=== PATIENT | female | born 1980 | race Caucasian/White ===

== ENCOUNTER 2023-01-27 16:19 | Observation (INO) | payer BC, SELFPAY ==
[2023-01-27] VITALS (17 sets, daily range): BP systolic 86–127; BP diastolic 68–101; PULSE 89–175; RESP 9–23; TEMP 36.7–37.5; O2SAT 96–100; BMI 29.8; BMI 32.1
[2023-01-27] MEDS: dilTIAZem 5 mg/mL SDV 5 mL 20 MG IVP (16:40)
--- NOTE | 2023-01-27 16:43 | XRR_ITS ---
PROCEDURE INFORMATION: Exam: XR Chest Exam date and time: 01/27/2023 4:54 PM Age: 43 years old Clinical indication: Cough; Additional info: Dyspnea/cough TECHNIQUE: Imaging protocol: Radiologic exam of the chest. Views: 1 view. COMPARISON: No relevant prior studies available. FINDINGS: Lungs: The lung bases are suboptimally assessed due to technique however the upper lungs are clear of focal consolidation. Pleural spaces: Unremarkable. No pleural effusion. No pneumothorax. Heart/Mediastinum: Cardiac silhouette appears normal in size. No obvious vascular congestion. Bones/joints: No acute osseous findings. Other findings: Single view was submitted. XR/XR chest 1V portable [id number] IMPRESSION: No obvious acute consolidation. Suboptimal lung base assessment. Followup including lateral view may be obtained if clinically indicated.
[2023-01-27] MEDS: dilTIAZem 100 MG in sodium chloride 0.9% (add-van) 100 ML IV (16:47)
--- NOTE | 2023-01-27 16:51 | W.ED.ARRPALP ---
HPI - Arrhythmia/Palpitations General: Chief Complaint: Arrhythmia/Palpitations Stated Complaint: light headed, heart racing Time Seen by Provider: 01/27/23 16:26 Source: patient Mode of arrival: ambulatory History of Present Illness: 43-year-old female presents emergency room stating that around 2:00. She has had rapid heart rate in the past but never quite this rapid or sustained she has been a little lightheaded and dizzy. When she first arrived her heart rate is in the 150s to 70s irregularly irregular and her systolic pressures in the 80s. She denies any chest pain. MD complaint: rapid heart beat, heart racing and palpitations Onset (ago): hour(s) Duration: constant Severity: mild Context: occurred during rest Associated symptoms: Deny anxiety, cough, diaphoresis, muscle cramps, nausea, paresthesias, pre-syncope, sense of impending doom, short of breath, syncope or vomiting Review of Systems Const: Denies: diaphoresis ENMT: Denies: throat pain, ear or mastoid pain, nasal discharge or nasal congestion Card: Denies: syncope or pre-syncope Resp: Denies: dyspnea, productive cough or non-productive cough GI: Denies: nausea or vomiting : Denies: flank pain, difficulty voiding, dysuria, urinary frequency or urinary urgency Musc: Denies: muscle cramps Skin/Breast: Denies: rash or pruritus Psych: Denies: anxiety PFSH ED PFSH: Medical History (Updated 01/27/23 @ 17:24 by Elia Grant DO) Diabetes mellitus Hypothyroidism Physical Exam Const: COMMON NORMALS: no acute distress GENERAL APPEARANCE: cooperative and comfortable ORIENTATION/CONSCIOUSNESS: Yes awake, Yes oriented to person, Yes oriented to place and Yes oriented to time HENMT: COMMON NORMALS: normocephalic, atraumatic and hearing grossly normal bilaterally HEAD & SCALP: normocephalic and atraumatic Resp: COMMON NORMALS: normal respiratory effort, No retractions, No use of accessory muscles and clear to auscultation bilaterally AUSCULTATION: clear to auscultation bilaterally Cardio: COMMON NORMALS: No murmurs present (Cardio) RATE: tachycardic RHYTHM: abnormal rhythm irregularly irregular GI: COMMON NORMALS: Soft to palpation and No hepatosplenomegaly present AUSCULTATION: Yes normoactive bowel sounds PALPATION: Yes Soft to palpation, No Tenderness to palpation present (GI), No Guarding due to palpation present (GI) and Yes No hepatosplenomegaly present Extremity: COMMON NORMALS: normal to inspection, capillary refill normal, no clubbing, cyanosis or edema, no calf tenderness and no pedal edema Neuro: SENSORIUM/ORIENTATION: Yes oriented to person, Yes oriented to place and Yes oriented to time Skin: COMMON NORMALS: no rashes or lesions noted GENERAL SKIN EXAM: no rashes or lesions noted Course Vital Signs: Vital signs: Vital Signs Temperature 98.1 F 01/27/23 16:34 Pulse Rate 175 H 01/27/23 16:34 Respiratory Rate 14 01/27/23 16:34 Blood Pressure 86/68 01/27/23 16:34 Pulse Oximetry 100 01/27/23 16:34 Oxygen Delivery Me thod 01/27/23 16:34 MDM - Arrhythmia/Palpitations Medical Decision Making New onset A-fib. Patient has a [id number] 2 score of 2. She is diabetic. She did later add that she takes phentermine occasionally and did take some yesterday which may also be a part of what triggered this. Related history to Dr. Adams orders written for new onset A-fib her initial p.o. dose of Cardizem given in the ER. She responded very well to the IV push Cardizem and the initial drip dose at 5. Medical Records I reviewed the patient's medical records. Lab Data I reviewed the patient's lab results. 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
--- NOTE | 2023-01-27 17:04 | P.HP_ITS ---
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 As per the patient she has had these episodes 4-5 times in last 20 years but mostly when she would feel her pulse they would be regular but today symptoms are prolonged, pulse felt irregular along with dizziness so she presented to the ER. Patient states she has been worked up few years ago for similar complaints and underwent cardiac stress test and was advised to keep hydration well to prevent from having episodes of tachycardia. She states today she went hiking with her family and did not drink water as much as she should have along with consumption of alcohol and her home medication of phentermine most likely medial have the tachycardia. In the ER patient was found to have atrial fibrillation with rapid ventricular response with heart rate running in the 170s with blood pressure of 190 systolic. She was given 1 L of IV fluid bolus and started on IV Cardizem and p.o. Cardizem 30 mg one-time after which her heart rate settled. On examination patient is anxious with family at bedside with Cardizem running at 5 with heart rates running between high 90s to 110s with blood pressure of 100 systolic. Patient denies any chest pain, nausea, vomiting, headache. Review of Systems General: Reports: 10 or more systems reviewed and unremarkable except in HPI and below Const: Denies: fever(s), chills, body aches, change in appetite, change in weight, malaise, night sweats, diaphoresis, change in sleep pattern, daytime sleepiness or snoring Eyes: Denies: change in vision, blurry vision, photophobia, eye discomfort or eye discharge ENMT: Denies: throat pain, enlarged tonsils, hoarseness, mouth pain, oral sores, dry mouth, tinnitus, nasal congestion or post nasal drip Card: Denies: chest pain, palpitations, irregular heart rhythm, edema, swelling of feet/ankles, lightheadedness, syncope, pre-syncope, dyspnea on exertion, orthopnea, leg pain with exertion or acrocyanosis Resp: Denies: dyspnea, productive cough, non-productive cough, wheezing, stridor, pain on inspiration, change in phlegm color, hemoptysis or chest congestion GI: Denies: abdominal pain, nausea, vomiting, hematemesis, coffee ground emesis, dysphagia, heartburn, diarrhea, constipation, bloating, GI cramping, change in bowel habits, pain on defecation, hematochezia or melena : Denies: flank pain, dysuria, urinary frequency, urinary urgency, urinary hesitancy, nocturia or hematuria Musc: Denies: neck pain, back pain, extremity pain, joint pain, joint swelling, joint redness, joint stiffness or limited range of motion Neuro: Denies: headache(s), numbness in extremities, weakness in extremities, sensory changes, lack of coordination, difficulty walking, frequent falls, dizziness, vertigo, confusion, Slurred speech present, difficulty communicating thoughts or seizure-like activity Psych: Denies: anxiety, depression, mood swings, panic attacks, hopelessness or irritability Endo: Denies: polyuria, polydipsia, tired all the time, cold intolerance, excessive sweating, flushing or heat intolerance Ted/Lymph: Denies: easy bruising or easy bleeding All/Imm: Denies: tongue swelling, facial swelling or acute wheezing Medications/Allergies Home Medications Medication Instructions Recorded Confirmed Last Taken Type phentermine 37.5 mg tablet 37.5 mg PO DAILY 01/27/23 01/27/23 01/26/23 History semaglutide 2 mg/dose (8 mg/3 mL) 2 mg SUBCUT Q7D 01/27/23 01/27/23 01/22/23 History subcutaneous pen injector (Ozempic) sumatriptan succinate 6 mg/0.5 mL 6 mg SUBCUT ONCE PRN migraines 01/27/23 01/27/23 Unknown History subcutaneous solution thyroid (pork) 90 mg tablet (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 PROCESSING EQUIPMENT REPAIRER 90 mg PO DAILY 01/27/23 01/27/23 01/27/23 History Thyroid) Allergies Allergy/AdvReac Type Severity Reaction Status Date / Time metoclopramide [From Reglan] Allergy Unknown Unknown Verified 01/27/23 17:20 PFSH Acute PFSH: Medical History (Updated 01/27/23 @ 17:24 by Elia L Horstman, DO) Diabetes mellitus Hypothyroidism Social History (Updated 01/27/23 @ 23:42 by Jonh Bray MD) Smoking and tobacco status: never smoked Alcohol intake: current Alcohol intake frequency: holidays/special occasions only Alcohol type: beer, wine, hard liquor and other Last alcohol use date: 01/26/23 Substance/Drug Use: never Caregiver/support person: Yes Lives independently: Yes Household members: family Housing: House Marital status: Highest education level completed: Associate Degree: Occupational, Technical, Vocational Program Current occupational status: employed 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 Vitals/I&O/Wt Last Vital Signs Temp 98.1 F 01/27/23 16:34 Pulse 175 H 01/27/23 16:34 Resp 14 01/27/23 16:34 BP 86/68 01/27/23 16:34 Pulse Ox 100 01/27/23 16:34 O2 Del Method 01/27/23 16:34 Weight last 48 hrs Weight 83.915 kg Physical Exam Narrative: General: No acute distress, AO x3, anxious HEENT: PERRLA, pupils bilaterally equal and reactive Chest: Normal vesicular breath sounds, no added sounds, equal good air entry bilaterally CVS: S1-S2 irregularly irregular, no murmurs, no tachycardia, no gallops, no rubs Abdomen: Soft, nontender, no organomegaly, bowel sounds present Neuro: No focal deficits, no facial deformity, AO x3, power 5/5 in all limbs Data 01/27/23 16:33 01/27/23 16:33 A&P Assessment and plan (1) Atrial fibrillation with rapid ventricular response: New diagnosis. Most likely secondary to possible dehydration along with side effect of phentermine which patient uses sporadically for weight loss with last consumption on 01/26. Check echocardiogram, D-dimer, urine drug screen, TSH. Continue Cardizem drip. Wean with heart rate less than 100. Transition with oral Cardizem 60 mg every 6 hourly. Monitor blood pressures. [id number] score: 2 for sex and history of diabetes. Discussed in detail regarding anticoagulation. Discussed for now we should continue the anticoagulation for at least 6 months while she gets an event mo nitor to monitor the frequency of atrial fibrillation before discontinuing for stroke prevention. Patient verbalizes understanding and is agreeable to start anticoagulation. Start on Lovenox 1 mg/kg body weight every 12 hourly. Will transition over to Eliquis 5 mg twice daily on discharge. Continue normal saline at 75 cc/h overnight. (2) Phentermine adverse reaction: Last consumption on 01/26. (3) Diabetes mellitus: Takes Ozempic at home. Insulin sliding scale low-dose protocol. Carb consistent diet. Check A1c. (4) Hypothyroidism: Continue with home dose of levothyroxine. Plan Anxiety: Not a known history. Start on Xanax 0.25 mg nightly as needed. Full code. Full dose Lovenox will suffice for DVT prophylaxis Famotidine for PUD prophylaxis Carb consistent diet. Attestations Medical Necessity Statement*: Admission for less than 2 midnights under observation for management of new onset atrial fibrillation with rapid ventricular response. Diagnoses Atrial fibrillation with rapid ventricular response I48.91 Phentermine adverse reaction T50.5X5A Diabetes mellitus E11.9 Hypothyroidism E03.9
[2023-01-27] MEDS: dilTIAZem 30 mg Tablet PO (17:08)
[2023-01-27] MEDS: sodium chloride 0.9% 1,000 ML 999 ML IV ×2 (17:08→17:09)
[2023-01-27 17:22] LABS: Basophils # 0.1 10^3/uL (0.0-0.1); Basophils % 0.5 %; Eosinophils # 0.1 10^3/uL (0.0-0.8); Eosinophils % 0.8 %; Hematocrit 43.2 % (37.0-47.0); Lymphocytes # 2.7 10^3/uL (0.8-4.8); Lymphocytes % 29.6 %; Mean Corpuscular HGB Conc 32.4 g/dL (30.0-36.0); Mean Corpuscular Hemoglobin 26.6 pg (28.0-34.0); Mean Corpuscular Volume 82.1 fl (81-99); Mean Platelet Volume 9.7 fL (7.4-10.4); Monocytes # 0.7 10^3/uL (0.2-0.9); Monocytes % 7.6 %; Neutrophils # 5.63 10^3/uL (1.8-7.7); Neutrophils % 61.2 %; Nucleated Red Blood Cells % 0 %; Platelet Count 317 10^3/cmm (130-400); Red Blood Count 5.26 10^6/uL (4.1-5.3); Red Cell Distribution Width 15.2 % (12.1-15.1); White Blood Count 9.2 10^3/uL (4.0-10.0)
[2023-01-27 17:30] LABS: D Dimer 0.45 ug/mIFEU (0-0.59)
[2023-01-27 17:35] LABS: Amphetamines Screen Urine Positive (Negative); Barbiturates Screen Urine Negative (Negative); Benzodiazepines Screen Urine Negative (Negative); Cocaine Screen Urine Negative (Negative); Opiate Screen Urine Negative (Negative); PCP Screen Urine Negative (Negative); THC Screen Urine Negative (Negative)
--- NOTE | 2023-01-27 17:40 | PC.NURSE ---
PT PLACED ON CONTINUOUS NIBP, SPO2, AND CM
[2023-01-27 17:47] LABS: Alanine Aminotransferase 19 U/L (0-33); Albumin Level 4.3 g/dL (3.5-5.2); Alkaline Phosphatase 64 U/L (35-105); Anion Gap 17.5 (5-19); Aspartate Amino Transferase 20 U/L (0-32); Blood Urea Nitrogen 11 mg/dL (6-20); Calcium 9.3 mg/dL (8.5-10.5); Carbon Dioxide 22 mmol/L (22-29); Chloride 100 mmol/L (98-107); Globulin 3.2 g/dL (1.3-4.6); Glomerular Filtration Rate 78.3 mL/min (90-130); Glucose 110 mg/dL (65-115); Osmolality Calculated 282 mOsm/kg (285-295); Potassium 3.5 mmol/L (3.5-5.1); Sodium 136 mmol/L (136-145); Thyroid Stimulating Hormone 0.53 uIU/mL (0.27-4.20); Total Bilirubin 0.6 mg/dL (0.15-1.2); Total Protein 7.5 g/dL (6.6-8.7)
[2023-01-27 18:03] LABS: Add Urine Microscopic? YES; Bilirubin Urine Neg (Negative); Glucose Urine UA Norm (Normal); Leukocyte Esterase Urine Negative (Negative); Nitrate Urine Negative (Negative); Protein Urine Neg (Negative); Specific Gravity, Urine 1.015 (1.005-1.030); Urine Appearance Clear (CLEAR); Urine Color Yellow (Yellow); Urobilinogen Urine Norm (Negative); pH Urine 6 (5-7)
[2023-01-27 18:04] LABS: Add Urine Culture? No; Bacteria Urine 1+ /hpf; Blood Urine 2+ (Negative); Ketones Urine 1+ (Negative); RBC Urine 0-4 /hpf (0-2); Squamous Epithelial Cell Urine 0-4 /hpf (0-5); WBC Urine 0-4 /hpf (0-5)
[2023-01-27 18:26] LABS: Iron 37 ug/dL (37-145); Percent Saturation 8.6 % (20-50); Total Iron Binding Capacity 427 mcg/dl; Unsaturated Iron Binding 390 ug/dL (112-347)
[2023-01-27] MEDS: dilTIAZem 60 mg Tablet PO ×2 (18:29→23:04)
[2023-01-27] MEDS: sodium chloride 0.9% 1,000 ML 75 ML IV (18:29)
[2023-01-27] MEDS: enoxaparin 100 mg/mL Syringe 80 MG SUBCUT (18:30)
[2023-01-27 18:42] LABS: Procalcitonin 0.04 ng/mL (0-0.5); Vitamin B12 559 pg/mL (232-1245)
[2023-01-27 20:06] LABS: Folate Level > 20.0 ng/mL (4.8-37.3)
[2023-01-27] MEDS: ALPRAZolam 0.5 mg Tablet PO (20:51)
[2023-01-27] MEDS: morphine 4 mg/mL SDV 1 mL 1 MG IVP (21:27)
[2023-01-28] VITALS: BP 89/69; PULSE 89; RESP 19; TEMP 36.8; O2SAT 98
[2023-01-28] MEDS: sodium chloride 0.9% 500 ML IV (00:05)
[2023-01-28 04:00] VITALS: BP 93/65; PULSE 82; RESP 22; TEMP 37.2; O2SAT 96
[2023-01-28 05:17] LABS: Basophils # 0.1 10^3/uL (0.0-0.1); Basophils % 0.6 %; Eosinophils # 0.1 10^3/uL (0.0-0.8); Eosinophils % 1.5 %; Hematocrit 37.1 % (37.0-47.0); Hemoglobin 11.6 g/dL (11.5-15.3); Lymphocytes # 4.3 10^3/uL (0.8-4.8); Lymphocytes % 54.8 %; Mean Corpuscular HGB Conc 31.3 g/dL (30.0-36.0); Mean Corpuscular Hemoglobin 26.1 pg (28.0-34.0); Mean Corpuscular Volume 83.6 fl (81-99); Mean Platelet Volume 9.9 fL (7.4-10.4); Monocytes # 0.8 10^3/uL (0.2-0.9); Monocytes % 10.3 %; Neutrophils # 2.53 10^3/uL (1.8-7.7); Neutrophils % 32.5 %; Nucleated Red Blood Cells % 0 %; Platelet Count 259 10^3/cmm (130-400); Red Blood Count 4.44 10^6/uL (4.1-5.3); Red Cell Distribution Width 15.4 % (12.1-15.1); White Blood Count 7.8 10^3/uL (4.0-10.0)
[2023-01-28] MEDS: dilTIAZem 60 mg Tablet PO (05:32)
[2023-01-28] MEDS: enoxaparin 100 mg/mL Syringe 80 MG SUBCUT (05:33)
[2023-01-28 05:34] LABS: Estmated Average Glucose 82; Hemoglobin A1C 4.5 % (4.0-6.0)
[2023-01-28 05:35] LABS: Alanine Aminotransferase 23 U/L (0-33); Albumin Level 3.2 g/dL (3.5-5.2); Alkaline Phosphatase 54 U/L (35-105); Anion Gap 11.5 (5-19); Aspartate Amino Transferase 22 U/L (0-32); Blood Urea Nitrogen 9 mg/dL (6-20); Calcium 7.7 mg/dL (8.5-10.5); Carbon Dioxide 22 mmol/L (22-29); Chloride 111 mmol/L (98-107); Chol HDL Ratio 2.95 mg/dL (0.0-4.40); Cholesterol 115 mg/dL (0-200); Globulin 2.3 g/dL (1.3-4.6); Glomerular Filtration Rate 78.3 mL/min (90-130); Glucose 84 mg/dL (65-115); HDL Cholesterol 39 mg/dL (60-100); LDL Cholesterol Calculated 55 mg/dL (50-129); Magnesium 1.8 mg/dL (1.7-2.3); Osmolality Calculated 288 mOsm/kg (285-295); Potassium 4.5 mmol/L (3.5-5.1); Sodium 140 mmol/L (136-145); Total Bilirubin 0.6 mg/dL (0.15-1.2); Total Protein 5.5 g/dL (6.6-8.7); Triglycerides 104 mg/dL (0-150); VLDL Cholestrol Calculation 21 mg/dL (0-30)
[2023-01-28 05:52] VITALS: PULSE 62
[2023-01-28 07:23] VITALS: BP 89/50; PULSE 77; RESP 17; TEMP 36.7; O2SAT 97
[2023-01-28] MEDS: sodium chloride 0.9% 1,000 ML 75 ML IV (10:34)
--- NOTE | 2023-01-28 11:10 | PM.DCS ---
Discharge Providers Date of Admission: 01/27/23 17:26 Date of Discharge: January 28, 2023 Attending Provider at Admission: Jonh Bray MD Attending Provider at Discharge: Jonh Bray MD Diagnoses at Discharge Discharge Diagnosis (1) Atrial fibrillation with rapid ventricular response: Status: Acute (2) Phentermine adverse reaction: Status: Acute (3) Diabetes mellitus: Status: Acute (4) Hypothyroidism: Status: Acute Reason for Visit Reason for Visit: light headed, heart racing Brief History: Alee Pederson is a 43 year old female with past medical history of hypothyroidism, migraines who takes sumatriptan as needed along with phentermine, type 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 As per the patient she has had these episodes 4-5 times in last 20 years but mostly when she would feel her pulse they would be regular but today symptoms are prolonged, pulse felt irregular along with dizziness so she presented to the ER.? Patient states she has been worked up few years ago for similar complaints and underwent cardiac stress test and was advised to keep hydration well to prevent from having episodes of tachycardia. She states today she went hiking with her family and did not drink water as much as she should have along with consumption of alcohol and her home medication of phentermine most likely medial have the tachycardia. In the ER patient was found to have atrial fibrillation with rapid ventricular response with heart rate running in the 170s with blood pressure of 190 systolic.? She was given 1 L of IV fluid bolus and started on IV Cardizem and p.o. Cardizem 30 mg one-time after which her heart rate settled. On examination patient is anxious with family at bedside with Cardizem running at 5 with heart rates running between high 90s to 110s with blood pressure of 100 systolic.? Patient denies any chest pain, nausea, vomiting, headache. Hospital Course Hospital Course Patient was admitted to hospital further evaluation and management. She was started on IV Cardizem and transition over to oral Cardizem. Patient responded well to treatment and converted back to normal sinus rhythm prior to discharge. Hospitalization was unremarkable. Is believe her symptoms are most likely secondary to combination of dehydration and side effect of phentermine. Her urine drug screen came back positive for amphetamines which is likely secondary to use of phentermine at home. She has been discharged hemodynamically stable condition on oral Cardizem 180 mg daily, anticoagulation with Eliquis 5 mg twice daily with advised not to take phentermine anymore and to follow-up with her aircraft pneudraulics repairer in her hometown for a possible event monitor and an echocardiogram Physical Exam Narrative: General: No acute distress, AO x3, anxious HEENT: PERRLA, pupils bilaterally equal and reactive Chest: Normal vesicular breath sounds, no added sounds, equal good air entry bilaterally CVS: S1-S2 regular,, no murmurs, no tachycardia, no gallops, no rubs Abdomen: Soft, nontender, no organomegaly, bowel sounds present Neuro: No focal deficits, no facial deformity, AO x3, power 5/5 in all limbs Discharge Data Studies Completed and Pending Completed Studies During Hospitalization Category Date Time Status XR chest 1V portable [id number] Stat Exams 01/27/23 16:43 Completed Pending at discharge Category Date Time Status CV. echo complete* [id number] Routine Ultrasound 01/28/23 06:00 Ordered Radiology Impressions Chest X-Ray 01/27/23 16:43 IMPRESSION: No obvious acute consolidation. Suboptimal lung base assessment. Followup including lateral view may be obtained if clinically indicated. Laboratory Results WBC 7.8 10^3/uL (4.0-10.0) 01/28/23 04:42 RBC 4.44 10^6/uL (4.1-5.3) 01/28/23 04:42 Hgb 11.6 g/dL (11.5-15.3) 01/28/23 04:42 Hct 37.1 % (37.0-47.0) 01/28/23 04:42 MCV 83.6 fl (81-99) 01/28/23 04:42 MCH 26.1 pg (28.0-34.0) L 01/28/23 04:42 MCHC 31.3 g/dL (30.0-36.0) 01/28/23 04:42 RDW 15.4 % (12.1-15.1) H 01/28/23 04:42 Plt Count 259 10^3/cmm (130-400) 01/28/23 04:42 MPV 9.9 fL (7.4-10.4) 01/28/23 04:42 Neut % (Auto) 32.5 % 01/28/23 04:42 Lymph % (Auto) 54.8 % 01/28/23 04:42 [place] % (Auto) 10.3 % 01/28/23 04:42 Eos % (Auto) 1.5 % 01/28/23 04:42 Baso % (Auto) 0.6 % 01/28/23 04:42 Neut # (Auto) 2.53 10^3/uL (1.8-7.7) 01/28/23 04:42 Lymph # (Auto) 4.3 10^3/uL (0.8-4.8) 01/28/23 04:42 [place] # (Auto) 0.8 10^3/uL (0.2-0.9) 01/28/23 04:42 Eos # (Auto) 0.1 10^3/uL (0.0-0.8) 01/28/23 04:42 Baso # (Auto) 0.1 10^3/uL (0.0-0.1) 01/28/23 04:42 Nucleated RBC % (auto) 0 % 01/28/23 04:42 Nucleated RBCs # 0.0 /100WBC 01/28/23 04:42 D-Dimer 0.45 ug/mIFEU (0-0.59) 01/27/23 16:33 Sodium 140 mmol/L (136-145) 01/28/23 04:42 Potassium 4.5 mmol/L (3.5-5.1) 01/28/23 04:42 Chloride 111 mmol/L (98-107) H 01/28/23 04:42 Carbon Dioxide 22 mmol/L (22-29) 01/28/23 04:42 Anion Gap 11.5 (5-19) 01/28/23 04:42 BUN 9 mg/dL (6-20) 01/28/23 04:42 Creatinine 0.8 mg/dL (0.5-0.9) 01/28/23 04:42 GFR Calculation 78.3 mL/min (90-130) L 01/28/23 04:42 Glucose 84 mg/dL (65-115) 01/28/23 04:42 Estimat Average Glucose 82 01/28/23 04:42 Hemoglobin A1c 4.5 % (4.0-6.0) 01/28/23 04:42 Calculated Osmolality 288 mOsm/kg (285-295) 01/28/23 04:42 Calcium 7.7 mg/dL (8.5-10.5) L 01/28/23 04:42 Phosphorus 3.0 mg/dL (2.5-4.5) 01/28/23 04:42 Magnesium 1.8 mg/dL (1.7-2.3) 01/28/23 04:42 Iron 37 ug/dL (37-145) 01/27/23 16:33 TIBC 427 mcg/dl 01/27/23 16:33 % Saturation 8.6 % (20-50) L 01/27/23 16:33 Unsat Iron Binding 390 ug/dL (112-347) H 01/27/23 16:33 Total Bilirubin 0.6 mg/dL (0.15-1.2) 01/28/23 04:42 AST 22 U/L (0-32) 01/28/23 04:42 ALT 23 U/L (0-33) 01/28/23 04:42 Alkaline Phosphatase 54 U/L (35-105) 01/28/23 04:42 Total Protein 5.5 g/dL (6.6-8.7) L D 01/28/23 04:42 Albumin 3.2 g/dL (3.5-5.2) L 01/28/23 04:42 Globulin 2.3 g/dL (1.3-4.6) 01/28/23 04:42 Triglycerides 104 mg/dL (0-150) 01/28/23 04:42 Cholesterol 115 mg/dL (0-200) 01/28/23 04:42 LDL Cholesterol, Calc 55 mg/dL (50-129) 01/28/23 04:42 Total VLDL Cholesterol 21 mg/dL (0-30) 01/28/23 04:42 HDL Cholesterol 39 mg/dL (60-100) L 01/28/23 04:42 Cholesterol/HDL Ratio 2.95 mg/dL (0.0-4.40) 01/28/23 04:42 Vitamin B12 559 pg/mL (232-1245) 01/27/23 16:33 Folate > 20.0 ng/mL (4.8-37.3) 01/27/23 16:33 Procalcitonin 0.04 ng/mL (0-0.5) 01/27/23 16:33 TSH 0.53 uIU/mL (0.27-4.20) 01/27/23 16:33 Urine Color Yellow (Yellow) 01/27/23 17:00 Urine Appearance Clear (CLEAR) 01/27/23 17:00 Urine pH 6 (5-7) 01/27/23 17:00 Ur Specific [place] 1.015 (1.005-1.030) 01/27/23 17:00 Urine Protein Neg (Negative) 01/27/23 17:00 Urine Glucose (UA) Norm (Normal) 01/27/23 17:00 Urine Ketones 1+ (Negative) H 01/27/23 17:00 Urine Blood 2+ (Negative) H 01/27/23 17:00 Urine Nitrate Negative (Negative) 01/27/23 17:00 Urine Bilirubin Neg (Negative) 01/27/23 17:00 Urine Urobilinogen Norm mg/dL (Negative) 01/27/23 17:00 Ur Leukocyte Esterase Negative (Negative) 01/27/23 17:00 Urine RBC 0-4 /hpf (0-2) H 01/27/23 17:00 Urine WBC 0-4 /hpf (0-5) H 01/27/23 17:00 Ur Squamous Epith Cells 0-4 /hpf (0-5) H 01/27/23 17:00 Amorphous Sediment Not Reportable 01/27/23 17:00 Urine Bacteria 1+ /hpf (NONE) H 01/27/23 17:00 Urine Opiates Screen Negative ng/mL (Negative) 01/27/23 17:00 Ur Barbiturates Screen Negative ng/mL (Negative) 01/27/23 17:00 Ur Phencyclidine Scrn Negative ng/mL (Negative) 01/27/23 17:00 Ur Amphetamines Screen Positive ng/mL (Negative) H 01/27/23 17:00 U Benzodiazepines Scrn Negative ng/mL (Negative) 01/27/23 17:00 Urine Cocaine Screen Negative ng/mL (Negative) 01/27/23 17:00 U Marijuana (THC) Screen Negative ng/mL (Negative) 01/27/23 17:00 Vitals Last Vital Signs Temp 98.1 F 01/28/23 07:23 Pulse 77 01/28/23 07:23 Resp 17 01/28/23 07:23 BP 89/50 01/28/23 07:23 Pulse Ox 97 01/28/23 07:23 O2 Del Method 01/28/23 07:23 Discharge Plan Discharge Patient Disposition: Home Condition: Stable Prescriptions: New Cardizem CD 180 mg capsule,extended release 24hr 180 mg PO DAILY Qty: 30 0RF Eliquis 5 mg tablet 5 mg PO BID Qty: 60 0RF Continued sumatriptan succinate 6 mg/0.5 mL solution 6 mg SUBCUT ONCE PRN (Reason: migraines) BROKE BEATER Thyroid 90 mg tablet 90 mg PO DAILY Ozempic 2 mg/dose (8 mg/3 mL) pen injector 2 mg SUBCUT Q7D Rx Instructions: On Mondays Discontinued phentermine 37.5 mg tablet 37.5 mg PO DAILY Discharge Orders: Discharge Order (Routine); Ordered 01/28/23 Ordered By: Jonh Bray Discharge Diet: Diabetic Discharge Activity: Resume usual activity and Increase activity as tolerated Patient Instructions: Diltiazem (By mouth) (Cardizem, Cardizem CD, Cardizem LA, Cardizem SR), Apixaban (By mouth) (Eliquis), A-fib (Atrial Fibrillation) (DC), Opioid Safety Activity Restrictions/Additional Instructions: Take Cardizem 180 mg oral daily to control her heart rate. Eliquis is a blood thinner. Please take twice daily. Please do not take phentermine anymore. You will require an event monitor going forward and an echocardiogram. Please have discussed follow-up with a aircraft pneudraulics repairer for further work-up. Please follow-up with a primary care provider within next 1 week. Please maintain oral hydration up to 2 to 2-1/2 L of fluid daily. Discharge Attestations Time Spent in Discharge Care*: greater than 30 min Specific Discharge Activities: educating patient, educating and/or supporting family/caregiver, discussing with pcp/other providers, discussing with field nurse case manager/social workers/dc planners, documenting/other paperwork and evaluating patient/reviewing data Status at Discharge: Cognitive status at discharge: cognitively intact, Behavioral status at discharge: cooperative, Functional status at discharge: independent ambulation, Overall status at discharge: patient is back to baseline Quality Metrics Clinical Quality Measures [ No reported AMI, CVA or VTE this stay] Coding Level of Care Code 63561 Total time (in minutes) for Discharge: 60 Diagnoses Atrial fibrillation with rapid ventricular response I48.91 Phentermine adverse reaction T50.5X5A Diabetes mellitus E11.9 Hypothyroidism E03.9
[2023-01-28 11:54] VITALS: BP 92/70; PULSE 78; RESP 13; TEMP 36.7; O2SAT 92
--- NOTE | 2023-01-28 11:55 | PC.SOCIAL ---
Nurse Trixie to provide Eliquis Coupon to patient when going over discharge information.
[2023-01-28 12:22] VITALS: BP 92/70; PULSE 78; RESP 13; TEMP 36.7; O2SAT 92
--- NOTE | 2023-01-28 13:20 | PC.NURSE ---
pt in nsr at change of shift.pt has ambulated in concepcion and has been up in room.has remained in nsr.discharge instructions given and explained.grazyna amaral given.pt verb understanding of instructions.dicharged ambulatory to exit.friend to drive pt home.
== END 2023-01-28 13:24 | disposition home or self-care (01) ==
LOC: ER 17:24 → CSU 17:31
PROVIDERS: Admitting Provider Student in an Organized Health Care Education/Training Program; Emergency Provider Family Medicine; Visit Provider Student in an Organized Health Care Education/Training Program
DX: T50.5X1A Poisoning by appetite depressants, accidental (unintentional), initial encounter (principal); I48.91 Unspecified atrial fibrillation; E03.9 Hypothyroidism, unspecified; G43.909 Migraine, unspecified, not intractable, without status migrainosus; E11.9 Type 2 diabetes mellitus without complications; E86.0 Dehydration
CPT/HCPCS: 36415; 71045; 80053; 80061; 80306; 81001; 82607; 82746; 83036; 83540; 83550; 83735; 84100; 84145; 84443; 85025; 85378; 96365; 96372; 96375; 99285; G0378; J1650; J2270; J3490; J7030; J7040